=== PATIENT | male | born 1955 | race Caucasian/White ===

== ENCOUNTER 2018-01-14 01:32 | Outpatient (RCR) | payer OTHER, SELFPAY | END 2018-01-26 23:59 | disposition home or self-care (01) | LOC: INF 01:32 | PROVIDERS: PCP Family Medicine; Visit Provider Internal Medicine Medical Oncology | DX: R69 Illness, unspecified (principal) ==

== ENCOUNTER 2018-04-17 09:26 | Outpatient (RCR) | payer MEDICARE, OTHER, SELFPAY ==
[2018-04-17] MEDS: Normal Saline Flush 10 ML SYR IVP (12:25)
[2018-04-17] MEDS: Heparin 500 UNITS/5 ML SYRINGE (12:30)
[2018-04-17 12:57] LABS: Abs Immature Grans 0.01 k/cumm (0.0-0.09); Absolute Basophil Count 0.01 k/cumm (0.0-0.2); Absolute Eosinophil Count 0.14 k/cumm (0.0-0.7); Absolute Monocyte Count 0.86 k/cumm (0.11-0.7); Absolute Neutrophil Count 3.79 k/cumm (1.2-6.7); Basophils % 0.2; Eosinophils % 2.5; HCT 40.4 % (40.0-50.0); HGB 12.9 g/dL (13.5-17.5); Immature Grans % 0.2; Lymphocytes % 14.3; Mean Corp. HGB Concentration 31.9 g/dL (32.0-36.0); Mean Corpuscular Hemoglobin 25.4 pg (27.0-33.0); Mean Corpuscular Volume 79.7 fL (80-95); Monocytes % 15.3; Neutrophils % 67.5; Platelet Count 275 x1000/uL (130-400); RBC 5.07 m/cumm (4.50-6.00); RBC Distribution Width 24.5 % (11.8-14.1); White Blood Cell Count 5.61 k/cumm (4.4-10.8)
[2018-04-17 13:09] LABS: ALT 27 U/L (12-78); AST 27 U/L (15-37); Albumin 3.2 g/dL (3.4-5.0); Alkaline Phosphatase 121 U/L (46-116); Anion Gap 8.3 mmol/L (3-11); BUN 11 mg/dL (7-18); Bilirubin, Total 0.5 mg/dL (0.2-1.0); CO2 29.7 mmol/L (21.0-32.0); CREATININE 0.75 mg/dL (0.70-1.30); Calcium 8.9 mg/dL (8.5-10.1); Chloride 105 mmol/L (98-107); Glucose 93 mg/dL (70-100); Potassium 3.7 mmol/L (3.5-5.1); Sodium 143 mmol/L (136-145)
== END 2018-04-28 23:59 | disposition home or self-care (01) ==
LOC: INF 09:26
PROVIDERS: PCP Family Medicine; Visit Provider Internal Medicine Hematology & Oncology
DX: C16.0 Malignant neoplasm of cardia (principal); Z45.2 Encounter for adjustment and management of vascular access device
CPT/HCPCS: 36591; 80053; 85025

== ENCOUNTER 2018-08-14 13:06 | Outpatient (RCR) | payer MEDICARE, OTHER, SELFPAY ==
[2018-08-14] MEDS: Heparin 500 UNITS/5 ML SYRINGE (13:00)
[2018-08-14 13:25] LABS: Abs Immature Grans 0.01 k/cumm (0.0-0.09); Absolute Basophil Count 0.02 k/cumm (0.0-0.2); Absolute Eosinophil Count 0.07 k/cumm (0.0-0.7); Absolute Lymphocyte Count 0.58 k/cumm (1.2-3.4); Absolute Monocyte Count 0.91 k/cumm (0.11-0.7); Basophils % 0.4; Eosinophils % 1.6; HCT 41.5 % (40.0-50.0); HGB 13.7 g/dL (13.5-17.5); Immature Grans % 0.2; Lymphocytes % 12.9; Mean Corpuscular Volume 84.7 fL (80-95); Monocytes % 20.3; Neutrophils % 64.6; Platelet Count 196 x1000/uL (130-400); RBC Distribution Width 17.8 % (11.8-14.1); White Blood Cell Count 4.49 k/cumm (4.4-10.8)
[2018-08-14 13:34] LABS: ALT 23 U/L (12-78); AST 23 U/L (15-37); Albumin 3.3 g/dL (3.4-5.0); Alkaline Phosphatase 120 U/L (46-116); Anion Gap 6.9 mmol/L (3-11); BUN 14 mg/dL (7-18); Bilirubin, Total 0.6 mg/dL (0.2-1.0); CO2 31.1 mmol/L (21.0-32.0); CREATININE 0.81 mg/dL (0.70-1.30); Calcium 8.5 mg/dL (8.5-10.1); Chloride 109 mmol/L (98-107); Glucose 107 mg/dL (70-100); Potassium 3.8 mmol/L (3.5-5.1); Sodium 147 mmol/L (136-145); Total Protein 6.6 g/dL (6.4-8.2)
[2018-08-14] MEDS: Normal Saline Flush 10 ML SYR IVP (15:22)
== END 2018-08-26 23:59 | disposition home or self-care (01) ==
LOC: INF 13:06
PROVIDERS: PCP Family Medicine; Visit Provider Internal Medicine Hematology & Oncology
DX: C16.0 Malignant neoplasm of cardia (principal); Z45.2 Encounter for adjustment and management of vascular access device
CPT/HCPCS: 36591; 80053; 85025

== ENCOUNTER 2018-12-18 13:45 | Outpatient (RCR) | payer MEDICARE, OTHER, SELFPAY ==
[2018-12-18 14:13] LABS: Absolute Basophil Count 0.01 k/cumm (0.0-0.2); Absolute Eosinophil Count 0.11 k/cumm (0.0-0.7); Absolute Lymphocyte Count 0.48 k/cumm (1.2-3.4); Absolute Monocyte Count 0.65 k/cumm (0.11-0.7); Absolute Neutrophil Count 2.99 k/cumm (1.2-6.7); Basophils % 0.2; Eosinophils % 2.6; HCT 37.8 % (40.0-50.0); HGB 12.1 g/dL (13.5-17.5); Lymphocytes % 11.3; Mean Corpuscular Hemoglobin 27.6 pg (27.0-33.0); Mean Corpuscular Volume 86.1 fL (80-95); Mean Platelet Volume 9.1 fL (8.0-11.0); Monocytes % 15.3; Neutrophils % 70.6; Platelet Count 362 x1000/uL (130-400); RBC 4.39 m/cumm (4.50-6.00); RBC Distribution Width 14.6 % (11.8-14.1); White Blood Cell Count 4.24 k/cumm (4.4-10.8)
[2018-12-18 14:25] LABS: ALT 39 U/L (12-78); AST 28 U/L (15-37); Albumin 2.9 g/dL (3.4-5.0); Alkaline Phosphatase 138 U/L (46-116); Anion Gap 8.5 mmol/L (3-11); BUN 14 mg/dL (7-18); Bilirubin, Total 0.4 mg/dL (0.2-1.0); CO2 29.5 mmol/L (21.0-32.0); CREATININE 0.67 mg/dL (0.70-1.30); Calcium 8.4 mg/dL (8.5-10.1); Chloride 105 mmol/L (98-107); Glucose 97 mg/dL (70-100); Potassium 3.6 mmol/L (3.5-5.1); Sodium 143 mmol/L (136-145); Total Protein 6.8 g/dL (6.4-8.2)
[2018-12-18] MEDS: Normal Saline Flush 10 ML SYR IVP (14:38)
[2018-12-18] MEDS: Heparin 500 UNITS/5 ML SYRINGE IVP (14:39)
[2018-12-18 14:56] LABS: Ferritin 144 ng/mL (8-388)
== END 2018-12-27 23:59 | disposition home or self-care (01) ==
LOC: INF 13:45
PROVIDERS: PCP Family Medicine; Visit Provider Internal Medicine Hematology & Oncology
DX: C16.9 Malignant neoplasm of stomach, unspecified (principal); Z45.2 Encounter for adjustment and management of vascular access device
CPT/HCPCS: 36591; 80053; 82728; 85025

== ENCOUNTER 2019-03-19 13:19 | Outpatient (RCR) | payer MEDICARE, OTHER, SELFPAY ==
[2019-03-19] MEDS: Heparin 500 UNITS/5 ML SYRINGE (13:30)
[2019-03-19] MEDS: Normal Saline Flush 10 ML SYR 30 ML IVP (13:30)
[2019-03-19 13:44] LABS: Abs Immature Grans 0.02 k/cumm (0.0-0.09); Absolute Basophil Count 0.02 k/cumm (0.0-0.2); Absolute Eosinophil Count 0.06 k/cumm (0.0-0.7); Absolute Lymphocyte Count 0.86 k/cumm (1.2-3.4); Absolute Monocyte Count 0.87 k/cumm (0.11-0.7); Absolute Neutrophil Count 4.15 k/cumm (1.2-6.7); Basophils % 0.3; HCT 40.3 % (40.0-50.0); HGB 13.1 g/dL (13.5-17.5); Immature Grans % 0.3; Lymphocytes % 14.4; Mean Corp. HGB Concentration 32.5 g/dL (32.0-36.0); Mean Corpuscular Hemoglobin 27.5 pg (27.0-33.0); Mean Corpuscular Volume 84.5 fL (80-95); Monocytes % 14.5; Neutrophils % 69.5; Platelet Count 250 x1000/uL (130-400); RBC 4.77 m/cumm (4.50-6.00); RBC Distribution Width 17.8 % (11.8-14.1); White Blood Cell Count 5.98 k/cumm (4.4-10.8)
[2019-03-19 14:19] LABS: ALT 33 U/L (16-63); AST 31 U/L (15-37); Albumin 3.6 g/dL (3.4-5.0); Alkaline Phosphatase 114 U/L (46-116); Anion Gap 7.3 mmol/L (3-11); BUN 14 mg/dL (7-18); Bilirubin, Total 0.5 mg/dL (0.2-1.0); CO2 29.7 mmol/L (21.0-32.0); CREATININE 0.71 mg/dL (0.70-1.30); Calcium 8.7 mg/dL (8.5-10.1); Chloride 106 mmol/L (98-107); Ferritin 37 ng/mL (26-388); Glucose 78 mg/dL (74-106); Potassium 3.5 mmol/L (3.5-5.1); Sodium 143 mmol/L (136-145)
== END 2019-03-28 23:59 | disposition home or self-care (01) ==
LOC: INF 13:19
PROVIDERS: PCP Family Medicine; Visit Provider Internal Medicine Hematology & Oncology
DX: C16.9 Malignant neoplasm of stomach, unspecified (principal); Z45.2 Encounter for adjustment and management of vascular access device
CPT/HCPCS: 36591; 80053; 82728; 85025